=== PATIENT | male | born 1955 | race Caucasian/White ===

== ENCOUNTER 2022-09-29 06:23 | Day surgery (SDC) | payer MEDICARE ==
[~2022-09-29] VITALS: Ht 172.7 cm; Wt 98.3 kg
[~2022-09-29 06:23] MED LIST: AMLO1TAB25 PO; ASPI81TA26 PO; ATIV1TAB7 PO; ATOR40TA75 PO; CARV25TA PO; ERGO500029; FENO160T10; FURO20TA2 PO; LOSA50TA28 PO; NOVO1INJ4 SC; ONDA4TAB6 PO
[2022-09-29] MEDS ORDERED: METR-265 PO (07:13)
[2022-09-29] MEDS ORDERED: CIPR500T39 PO (07:13)
[2022-09-29] MEDS ORDERED: LR 1,000 ML IV SCH ×2 (07:55→10:45)
[2022-09-29] MEDS ORDERED: LIDOCAINE PRES-FREE 2% 10ML AMP INH ONE (08:00)
[2022-09-29] MEDS ORDERED: SCOPOLAMINE 1MG TRANSDERMAL PATCH TOP ONE (08:00)
[2022-09-29] MEDS ORDERED: ALBUTEROL SULFATE 2.5MG/0.5ML INH NEB SOLN INH ONE (08:00)
[2022-09-29 08:25] LABS: PLATELET COUNT, AUTOMATED 169 10^3/uL (150-450)
[2022-09-29] MEDS ORDERED: LIDOCAINE 2% 100MG/5ML SDV (FOR ANES.) As Ordered ONE (08:26)
[2022-09-29] MEDS ORDERED: propofoL 200 MG/20 ML VIAL As Ordered ONE (08:26)
[2022-09-29] MEDS ORDERED: MIDAZOLAM INJ 2MG/2ML VIAL As Ordered ONE (08:26)
[2022-09-29] MEDS ORDERED: ROCURONIUM BROMIDE 50MG/5ML VIAL As Ordered ONE (08:26)
[2022-09-29] MEDS ORDERED: fentaNYL 250 MCG/5 ML INJECTION As Ordered ONE (08:26)
[2022-09-29] MEDS ORDERED: ONDANSETRON 4MG 2ML VIAL As Ordered ONE (08:26)
[2022-09-29 08:33] LABS: INR 1.05; PROTHROMBIN TIME 13.9 SECONDS (12.5-14.5)
[2022-09-29 08:34] LABS: PARTIAL THROMBOPLASTIN TIME 25.3 SECONDS (24.8-34.2)
[2022-09-29] MEDS ORDERED: CETACAINE SPRAY 5GM As Ordered ONE (09:03)
[2022-09-29] MEDS ORDERED: EPINEPHrine 1MG/10ML SYRINGE 1.5IN As Ordered ONE (09:04)
[2022-09-29] MEDS ORDERED: ACETAMINOPHEN 1000MG 100ML IV BAG As Ordered ONE (09:44)
[2022-09-29] MEDS ORDERED: ePHEDrine SULFATE 25 MG/5 ML(5MG/ML) SYRINGE As Ordered ONE (09:50)
[2022-09-29] MEDS ORDERED: SUGAMMADEX SODIUM 500 MG/5 ML VIAL (BRIDION) As Ordered ONE (09:50)
[2022-09-29] MEDS ORDERED: METOCLOPRAMIDE INJ 10MG/2ML VIAL As Ordered ONE (09:52)
[2022-09-29] MEDS ORDERED: ONDANSETRON 4MG 2ML VIAL IV PRN (10:45)
[2022-09-29] MEDS ORDERED: fentaNYL 100 MCG/2 ML INJECTION IV PRN (10:45)
[2022-09-29] MEDS ORDERED: oxyCODONE 5MG TAB PO PRN (10:45)
[2022-09-29] MEDS ORDERED: HYDROMORPHONE HCL 0.5 MG/ 0.5 ML SYRINGE IV PRN (10:45)
[2022-09-29] MEDS ORDERED: INSULIN LISPRO (NovoLOG) PER UNIT SC PRN (11:05)
[2022-09-29 12:42] VITALS: BP 142/78
== END 2022-09-29 12:45 | disposition home or self-care (01) ==
LOC: M SDC 06:23
PROVIDERS: ATTEND Internal Medicine Pulmonary Disease
DX: R91.1 Solitary pulmonary nodule (principal); R59.0 Localized enlarged lymph nodes; I10 Essential (primary) hypertension; E78.00 Pure hypercholesterolemia, unspecified; E11.9 Type 2 diabetes mellitus without complications; Z95.2 Presence of prosthetic heart valve; F41.9 Anxiety disorder, unspecified; Z90.5 Acquired absence of kidney; Z85.528 Personal history of other malignant neoplasm of kidney; Z88.0 Allergy status to penicillin; Z79.899 Other long term (current) drug therapy; Z79.82 Long term (current) use of aspirin; Z79.4 Long term (current) use of insulin
CPT/HCPCS: 31624; 31627; 31628; 31629; 36415; 71045; 76000; 85027; 85610; 85730; 88108; 88173; 88305; 88313; J0131; J0171; J1100; J1815; J2250; J2405; J2765; J3010

== ENCOUNTER → 2025-06-22 | Outpatient (CLI) | payer MEDICARE ==
[~2025-06-22] MED LIST changes: +CIPR500T39 PO; +METR-265 PO; +ONDA-282 PO; -ONDA4TAB6 PO
== END ==
LOC: M RAD 07:24
PROVIDERS: ATTEND Nurse Practitioner Family
DX: R91.1 Solitary pulmonary nodule (principal); M31.30 Wegener's granulomatosis without renal involvement